=== PATIENT | female | born 1950 | race Caucasian/White ===

== ENCOUNTER 2017-02-26 15:33 | Outpatient (CLI) | payer BC | END 2017-02-26 15:34 | disposition home or self-care (01) | LOC: BICMAMMO 15:33 | PROVIDERS: ATTEND Student in an Organized Health Care Education/Training Program | DX: Z12.31 Encounter for screening mammogram for malignant neoplasm of breast (principal); Z80.3 Family history of malignant neoplasm of breast; R92.1 Mammographic calcification found on diagnostic imaging of breast | CPT/HCPCS: 77063; 77067 ==

== ENCOUNTER 2018-03-07 07:36 | Outpatient (CLI) | payer MEDICARE, BC | END 2018-03-07 07:37 | disposition home or self-care (01) | LOC: BICMAMMO 07:36 | PROVIDERS: ATTEND Student in an Organized Health Care Education/Training Program | DX: Z12.31 Encounter for screening mammogram for malignant neoplasm of breast (principal); Z80.3 Family history of malignant neoplasm of breast | CPT/HCPCS: 77063; 77067 ==